=== PATIENT | male | born 1965 | race Hispanic/Latino ===

== ENCOUNTER 2025-02-23 17:36 | Emergency (ER) | payer BC ==
[~2025-02-23] VITALS: Ht 175.3 cm; Wt 72.6 kg
[2025-02-23 18:00] VITALS: BP 106/82; PULSE 115; RESP 22; TEMP 98.8; O2SAT 98
[2025-02-23] MEDS ORDERED: 0.9%NACL 1000ML 1,000 ML IV ONE (18:00)
--- NOTE | 2025-02-23 18:03 | ERN ---
ED Note History of Present Illness Stated Complaint: NEAR SYNCOPE Chief Complaint: Syncope Time Seen by MD: 17:44 Time Seen by Midlevel: 17:45 Dictation: Mr. Crandall a 59-year-old gentleman with history of type 2 diabetes and left foot TMA (October 2024) who was transported via EMS to the emergency department this evening for evaluation of general weakness. He states that he was working in a home with no air conditioning when he became week and very dizzy. He went outside for some fresh air, sat down, and drank a warm vitamin water. He states that shortly after drinking the water he felt like his throat was closing and that he could not breathe prompting him to call 911. He also noted ABARCA as well as dizziness and nausea. Paramedics noted blood glucose level of 201. They applied cooling measures and administered NS 1000 mL IV as bolus. Patient is from [place] and currently visiting [facility] for work. He denies fever, chills, cough, chest pain, palpitations, edema, abdominal pain, vomiting, hematemesis, constipation, diarrhea, dysuria, dysphagia, dysarthria, or focal weakness/paresthesia PCP: in [place] Allergies: Coded Allergies: No Known Allergies (Unverified Allergy, Unknown, 02/23/25) Emergency Care PAPER FEEDER: IV Home Meds Active Scripts Ondansetron (Ondansetron Odt) 4 Mg Tab.rapdis, 4 MG PO Q6HPRN PRN for nausea, #15 TAB 0 Refills Prov:MENG RICHARD MANAGER EDITORIAL 02/23/25 Past Medical History Past Medical History: Diabetes-Type II Surgical History: Other PSYCH History: no pertinent psych hx Social History: Negative, Other (Patient is from [place]) RN Note Reviewed/Agreed w/PFSH: Yes Review of System Dictation REVIEW OF SYSTEMS: CONSTITUTIONAL: Patient denies fevers, chills, sweats and weight changes. Reports fatigue and general weakness EYES: Patient denies any visual symptoms. EARS, NOSE, AND THROAT: No difficulties with hearing. No symptoms of rhinitis. States he felt like his throat was closing up CARDIOVASCULAR: Patient denies chest pains, palpitations, orthopnea and p aroxysmal nocturnal dyspnea. RESPIRATORY: No dyspnea on exertion, no wheezing or cough. Reported shortness of breath GI: No vomiting, diarrhea, constipation, abdominal pain, hematochezia or melena. Reported nausea. : No urinary hesitancy or dribbling. No nocturia or urinary frequency. No abnormal urethral discharge. MUSCULOSKELETAL: No myalgias or arthralgias. NEUROLOGIC: No chronic headaches, no seizures. Patient denies numbness, tingling or weakness. Reported headache and dizziness PSYCHIATRIC: Patient denies problems with mood disturbance. No problems with anxiety. ENDOCRINE: No excessive urination or excessive thirst. According to his blood glucose monitoring device his blood sugars have been ranging between 150-200 DERMATOLOGIC: Patient denies any rashes or skin changes. Initial Vital Sign VS Vital Signs Date Time Temp Pulse Resp B/P (MAP) Pulse Ox O2 Delivery O2 Flow Rate FiO2 02/23/25 17:38 98.1 115 20 105/66 98 Room Air 02/23/25 18:00 0 21 Physical Exam Dictation Vital signs: Reviewed. Afebrile Constitutional: No acute distress. Non-toxic appearing. Pleasant. Head/Face: Normocephalic, atraumatic. Eyes: Periorbital areas with no swelling, redness, or edema. Lids and lashes are normal. Conjunctival injection is absent. Sclera anicteric. Pupils equal, round, reactive to light. ENT: Pinnas intact and no signs of trauma or erythema. Ear canals clear and no discharge. TMs no erythema. No nasal discharge or bleeding noted. Oropharynx with no exudate, redness, swelling, masses, exudates, or evidence of obstruction. Uvula midline. Mucous membranes dry. Neck: Trachea midline, no masses palpated, and no cervical lymphadenopathy. No swelling. Supple, full range of motion. Chest/Axilla: No tenderness, no crepitus, no paradoxical movement, no retractions. Cardiovascular: Regular rate, regular rhythm, no murmur, no gallops. Symmetric pulses. No peripheral edema. Normotensive; 106/82. Twelve lead EKG reflects a sinus tachycardia without ST elevation or depression. Respiratory: Respirations even and unlabored. Lung sounds clear; no wheezes, rales or rhonchi. Room air spo2 98% Gastrointestinal: Inspection is normal. No distention is appreciated. Bowel sounds are normal. No mass or organomegaly . There is no tenderness. No rebound. No rigidity. No voluntary or involuntary guarding. No Castaneda's sign. Neurological: Normal speech, gross motor function intact, gross sensory function intact. No focal weakness/Paresthesia. NIHSS=0 Musculoskeletal/Extremities: All extremities have full range of motion, no pain or tenderness on palpation. Symmetric pulses. LTMA; well healed. Integumentary: Intact. Skin is normal flushed, hot, and dry. Cap refill less than 2 seconds. Results (Laboratory/Radiology) Laboratory/Radiology Laboratory Tests Test 02/23/25 18:04 02/23/25 18:27 White Blood Count 7.1 K/uL (4.8-10.8) Red Blood Count 4.58 MIL/uL (4.50-6.20) Hemoglobin 13.6 g/dL (14.0-18.0) L Hematocrit 38.9 % (42-54) L Mean Corpuscular Volume 84.9 fL (79-99) Mean Corpuscular Hemoglobin 29.7 pg (27.0-33.0) Mean Corpuscular Hemoglobin Concent 35.0 g/dL (32.0-36.0) Red Cell Distribution Width 11.8 % (11.0-15.5) Platelet Count 119 K/uL (130-400) L Mean Platelet Volume 10.8 fL (7.5-10.5) H Immature Granulocyte % (Auto) 0.4 % (0-1) Neutrophils (%) (Auto) 69.6 % (40.0-77.0) Lymphocytes (%) (Auto) 20.0 % (21.0-51.0) L Monocytes (%) (Auto) 7.9 % (3.0-13.0) Eosinophils (%) (Auto) 1.5 % (0.0-8.0) Basophils (%) (Auto) 0.6 % (0.0-5.0) Neutrophils # (Auto) 5.0 K/uL (1.8-7.7) Lymphocytes # (Auto) 1.4 K/uL (1.0-4.8) Monocytes # (Auto) 0.6 K/uL (0.1-1.0) Eosinophils # (Auto) 0.11 K/uL (0.00-0.70) Basophils # (Auto) 0.04 K/uL (0.00-0.20) Absolute Immature Granulocyte (auto 0.03 K/uL (0-1) Nucleated Red Blood Cells 0.0 % (0.0-0.19) Sodium Level 147 mmol/L (136-145) H Potassium Level 4.2 mmol/L (3.5-5.1) Chloride Level 109 mmol/L (101-111) Carbon Dioxide Level 26 mmol/L (21-32) Blood Urea Nitrogen 35 mg/dL (7-18) H Creatinine 1.2 mg/dL (0.5-1.3) Glomerular Filtration Rate Calc 71 mL/min (>90) Random Glucose 193 mg/dL (70-105) H Total Calcium 9.2 mg/dL (8.5-10.1) Total Creatine Kinase 77 U/L (21-232) Troponin I High Sensitivity 5 ng/L (4-75) Urine Color YELLOW (YELLOW) Urine Appearance CLOUDY (CLEAR) H Urine pH 6.0 (5.0-8.0) Urine Specific Bells 1.017 (1.001-1.031) Urine Protein 50 mg/dL (NEGATIVE) H Urine Glucose (UA) TRACE mg/dL (NEGATIVE) H Urine Ketones NEGATIVE mg/dL (NEGATIVE) Urine Occult Blood +- (TRACE) (NEGATIVE) H Urine Nitrate NEGATIVE (NEGATIVE) Urine Bilirubin NEGATIVE mg/dL (NEGATIVE) Urine Urobilinogen 2.0 mg/dL (0.2-1.0) H Urine Leukocyte Esterase NEGATIVE Joann/uL Labs Reviewed?: Yes EKG Comment: EKG Interpretation: Time Reviewed: 1751 Ventricular rate: 114 bpm NV Interval: 139 ms QRS duration: [address] segment elevation or depression. Clinical impression: sins tachycardia EKG Reviewed and interpreted by Dr. Santos ED Course ED Course Orders Procedure Category Date Status Time 12 Lead Ekg Tracing- EKG 02/23/25 Logged Technical 17:49 Cbc With Differential LAB 02/23/25 Complete 17:49 Basic Metabolic Panel LAB 02/23/25 Complete 17:49 Troponin I High LAB 02/23/25 Complete Sensitivity 17:49 Creatine Kinase, Total LAB 02/23/25 Complete 17:49 0.9%Nacl 1000ml (Ns PHA 02/23/25 Complete 1000ml) 18:00 Urinalysis Profile LAB 02/23/25 In Process 17:50 Current Medications Medications (Trade) Dose Ordered Sig/Chela Route PRN Reason Start Time Stop Time Status Last Admin Dose Admin Sodium Chloride 1,000 ml @ 0 mls/hr ONCE ONCE IV 02/23/25 18:00 02/23/25 18:01 DC Vital Signs Date Time Temp Pulse Resp B/P (MAP) Pulse Ox O2 Delivery O2 Flow Rate FiO2 02/23/25 18:00 98.8 115 22 106/82 98 Room Air* 0 21 02/23/25 17:38 98.1 115 20 105/66 98 Room Air Uneventful ED course. Initial heart rate 115; normotensive. Remains afebrile. Heart rate decreased to 80. Twelve lead EKG reflects a sinus tachycardia without ST elevation or depression. No elevation of WBCs. H/H 13.6/38.9, platelet count 119, Na 147, BUN 35, BUN/CR ratio 29, and glucose 193. No elevation of CK. Troponin negative. He states he was already feeling better following NS bolus per EMS. He received an additional 1000 mL IV as bolus in ED. findings were discussed with patient and all questions were answered. Medical Decision Making MDM MDM: Differential diagnosis: Heat exhaustion, dehydration, hyperglycemia, cardiac arrhythmia Rationale: Tests considered and ordered secondary to shared decision making include: EKG, lab Previous outside records reviewed: Old ER visits. Risk of complication and/or morbidity or mortality of patient management: None Medications-Per medication reconciliation Need for hospitalization: Patient does not meet criteria for hospitalization. Need for emergency major/minor surgery: No There are no social concerns with this patient. Prescription drug management: Zofran Prescriptions will include symptomatic care Patient's prior external medical records from other ER visits were reviewed by me as indicated. Prior testing and results from previous visits were reviewed. Prior tests were taken into account with medical decision making and resource utilization, independent historian/historians were used to obtain complete medical history. I independently interpreted the test that were performed, results were reviewed by me and considered findings on radiology if ordered. Medical management and examination interpretation discussions were had by me with other qualified healthcare professionals as indicated for the patient's care. DX & DISP Disposition: Discharge Departure Impression: Primary Impression: Heat exhaustion Additional Impressions: Dehydration, Type 2 diabetes mellitus with hyperglycemia Condition: Stable Scripts Ondansetron (Ondansetron Odt) 4 Mg Tab.rapdis 4 MG PO Q6HPRN PRN for nausea, #15 TAB 0 Refills Prov: MENG RICHARD MANAGER EDITORIAL 5/17/25 Additional Instructions: Rest. Stay in a cool/stated, or air conditioned environment. Avoid strenuous activity for at least 24-48 hours. Monitor blood glucose levels. Drink plenty of fluids: Water, electrolyte drinks, avoid alcohol and caffeine which can worsening or dehydration. Take cool showers or sponge baths. He has fan school packs, and damp cloth on your neck/armpit/groin to lower body temperature. Wear loose light weight and light colored clothing. Return to the emergency department for any worsening of symptoms such as persistent vomiting, confusion, chest pain, shortness of breath, seizure, fainting, and high fever. Follow up with your primary care physician if symptoms do not fully resolve in 2-3 days. Referrals: SELF,REFERRAL (PCP) Time of Disposition: 18:35 MENG RICHARD NP February 23, 2025 18:03
[2025-02-23 18:12] LABS: BASOPHILS # (AUTO) 0.04 K/uL (0.00-0.20); BASOPHILS % (AUTO) 0.6 % (0.0-5.0); EOSINOPHILS # (AUTO) 0.11 K/uL (0.00-0.70); EOSINOPHILS % (AUTO) 1.5 % (0.0-8.0); HEMATOCRIT 38.9 % (42-54); IMMATURE GRANULOCYTE ABSOLUTE 0.03 K/uL (0-1); LYMPHOCYTES # (AUTO) 1.4 K/uL (1.0-4.8); MEAN CORPUSCULAR HEMOGLOBIN 29.7 pg (27.0-33.0); MEAN CORPUSCULAR VOLUME 84.9 fL (79-99); MONOCYTES # (AUTO) 0.6 K/uL (0.1-1.0); MONOCYTES % (AUTO) 7.9 % (3.0-13.0); NEUTROPHILS % (AUTO) 69.6 % (40.0-77.0); PLATELET COUNT (AUTO) 119 K/uL (130-400); RED BLOOD CELL COUNT(AUTO) 4.58 MIL/uL (4.50-6.20); RED CELL DISTRIBUTION WIDTH 11.8 % (11.0-15.5); WHITE BLOOD COUNT (AUTO) 7.1 K/uL (4.8-10.8)
[2025-02-23 18:25] LABS: CREATININE 1.2 mg/dL (0.5-1.3); POTASSIUM 4.2 mmol/L (3.5-5.1)
[2025-02-23 18:36] LABS: ADD UA MICROSCOPIC YES; APPEARANCE,URINE CLOUDY (CLEAR); BILIRUBIN,URINE NEGATIVE (NEGATIVE); COLOR,URINE YELLOW (YELLOW); GLUCOSE, URINE (UA) TRACE mg/dL (NEGATIVE); KETONES,URINE NEGATIVE (NEGATIVE); LEUKOCYTE ESTERASE ,URINE NEGATIVE Leu/uL (NEGATIVE); NITRATE,URINE NEGATIVE (NEGATIVE); PROTEIN,URINE 50 mg/dL (NEGATIVE)
[2025-02-23] MEDS ORDERED: ONDA-243 PO (18:36)
[2025-02-23 18:50] LABS: BACTERIA,URINE RARE /HPF (None Seen); MUCUS,URINE RARE LPF (None Seen); OTHER CASTS, URINE 1 /LPF (None Seen); SQUAMOUS EPITHELIAL CELL,UR RARE /HPF (0-2)
--- NOTE | 2025-02-23 18:52 | EKG ---
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
== END 2025-02-23 18:55 | disposition home or self-care (01) ==
LOC: EDSEX 17:36 → EDH 17:36
DX: T67.5XXA Heat exhaustion, unspecified, initial encounter (principal); E86.0 Dehydration; E11.65 Type 2 diabetes mellitus with hyperglycemia; X58.XXXA Exposure to other specified factors, initial encounter; Y93.9 Activity, unspecified; Y92.89 Other specified places as the place of occurrence of the external cause; Y99.8 Other external cause status
CPT/HCPCS: 36415; 80048; 81001; 82550; 84484; 85025; 93005; 99284